=== PATIENT | female | born 1955 | race American Indian/Alaskan Native ===

== ENCOUNTER 2019-04-19 10:52 | Outpatient (CLI) | payer OTHER ==
--- NOTE | 2019-04-19 12:03 | Mammography Report ---
BILATERAL DIGITAL SCREENING MAMMOGRAM WITH CAD INDICATION: Routine screening mammography. History of a left benign biopsy. TECHNIQUE: Digital bilateral 2D mammography was obtained in the craniocaudal and mediolateral obliq ue projections. This examination was interpreted with the benefit of Computer-Aided Detection analysi s. COMPARISON: None available. FINDINGS: Breast Density: There are scattered areas of fibroglandular density. No mass, suspicious architectural distortion or suspicious calcifications. Mild left retroareolar pos tsurgical scar. A few bilateral benign calcifications. IMPRESSION:No mammographic evidence of malignancy. BI-RADS Category 2: Benign. No mammographic evidence of malignancy. Recommend routine screening ma mmography in one year. A "normal" or negative report should not discourage follow up or biopsy of a clinically significant f inding. A written summary of these findings will be mailed to the patient. The patient will be entered into a mammography reporting system which will generate a reminder letter for the patient's next appointmen t at the appropriate interval. The [employer] recommends yearly mammograms starting at age 40 and continuing as l christa as a woman is in good health. Breast MRI is recommended for women with an approximate 20-25% or greater lifetime risk of breast cancer, including women with a strong family history of breast or ova nikko cancer or who have been treated for Hodgkin's disease. Signer Name: Duong Esquivel MD Signed: 04/19/2019 11:58 AM Workstation Name: [id number]
== END 2019-04-19 10:53 | disposition home or self-care (01) ==
LOC: SPVWC 10:52
PROVIDERS: ATTEND Family Medicine
DX: Z12.31 Encounter for screening mammogram for malignant neoplasm of breast (principal); I10 Essential (primary) hypertension
CPT/HCPCS: 77067